=== PATIENT | male | born 1965 | race Caucasian/White ===

== ENCOUNTER → 2018-02-05 19:56 | Outpatient (CLI) | payer BC, SELFPAY ==
--- NOTE | 2018-02-05 19:59 | DI.MRI.S_ITS ---
PROCEDURE: MR LUMBAR SPINE WO CON INDICATIONS: LUMBAR BACK PAIN WITH RADICULOPATHY TECHNIQUE: Noncontrast sagittal T1 spin echo and T2 fast echo, sagittal STIR, axial T1 and T2 fast spin echo through the lumbar spine. In cases with scoliosis, additional coronal T2 fast spin echo may be performed. COMPARISON: None. FINDINGS: Image quality: Excellent. Alignment and Curvature: No plain films are available for comparison, for numbering purposes. Thus, for the purposes of this examination, 5 lumbar type vertebral bodies will be presumed, as denoted on the montage panel. This should be confirmed and correlated with plain films, prior to any lumbar spinal intervention. There is loss of normal lumbar lordosis. Bone Marrow: Marrow is of normal overall signal. No acute vertebral body compression fractures. There is mild reactive signal within the endplates adjacent to the the L1-L2, L2-L3, L3-L4, and L4-L5 intervertebral discs. Spinal Cord: Conus medullaris terminates at the T12-L1 disc space level. Visualized cord demonstrates normal signal and size. Paraspinous Soft Tissues: No paravertebral masses. T12-L1: Mild disc desiccation and diffuse disc bulge with superimposed small broad-based right posterolateral protrusion. Mild facet and ligamentum flavum hypertrophy bilaterally. Mild epidural lipomatosis. Mild canal stenosis. Mild right greater than left foraminal stenosis. L1-L2: Congenital canal stenosis. Mild disc desiccation and diffuse disc bulge. Mild facet and ligamentum flavum hypertrophy bilaterally. Mild epidural lipomatosis. Mild canal stenosis. Mild foraminal stenosis bilaterally. L2-L3: Congenital canal stenosis. Moderate disc height loss and desiccation. Moderate diffuse disc bulge with superimposed left paracentral protrusion. Moderate facet hypertrophy bilaterally. Mild ligamentum flavum hypertrophy bilaterally. Mild epidural lipomatosis. Severe canal stenosis. Mild foraminal stenosis bilaterally. L3-L4: Congenital canal stenosis. Moderate disc desiccation. Mild disc height loss. Mild diffuse disc bulge. Moderate facet hypertrophy bilaterally. Mild ligamentum flavum hypertrophy bilaterally. Mild epidural lipomatosis. Severe canal stenosis. Mild foraminal stenosis bilaterally. L4-L5: Congenital canal stenosis. Moderate disc height loss and desiccation. Mild diffuse disc bulge. Moderate facet and ligamentum flavum hypertrophy bilaterally. Mild epidural lipomatosis. Severe canal stenosis. Mild foraminal stenosis bilaterally. L5-S1: Congenital canal stenosis. Moderate disc height loss and desiccation. Mild diffuse disc bulge. Mild facet hypertrophy bilaterally. Epidural lipomatosis. Moderate canal stenosis. Mild foraminal stenosis bilaterally. IMPRESSION: 1. Diffuse congenital canal stenosis, with superimposed disc and facet disease, as well as ligamentum flavum hypertrophy. 2. Severe canal stenoses at L2-L3, L3-L4, and L4-L5. 3. Mild multilevel foraminal stenoses. 4. 5 lumbar type vertebral bodies were presumed for the current report. Plain films of the lumbar spine are recommended for confirmation, prior to any lumbar spinal intervention. Dictated by: Ariel Jacques M.D. on 02/06/2018 at 8:33 Approved by: Ariel Jacques M.D. on 02/06/2018 at 8:41
== END ==
PROVIDERS: Visit Provider Nurse Practitioner Family
DX: M54.5 Low back pain (principal); M48.061 Spinal stenosis, lumbar region without neurogenic claudication; M48.07 Spinal stenosis, lumbosacral region; M51.16 Intervertebral disc disorders with radiculopathy, lumbar region; M51.17 Intervertebral disc disorders with radiculopathy, lumbosacral region
CPT/HCPCS: 72148

== ENCOUNTER → 2018-02-19 09:13 | Outpatient (CLI) | payer BC, SELFPAY ==
--- NOTE | 2018-02-19 | DI.CT.S_ITS ---
PROCEDURE: CT ABDOMEN PELVIS WO/W CON INDICATIONS: HEMATURIA TECHNIQUE: Optional 5 mm thick noncontrast images acquired from the diaphragm to the symphysis pubis. After the administration of intravenous contrast, 5 mm thick images acquired from the diaphragm to the symphysis pubis after a 10-minute delay. 2 mm thick coronal and sagittal reformats were then performed of the kidneys and ureters. For radiation dose reduction, the following was used: automated exposure control, adjustment of mA and/or kV according to patient size. COMPARISON: None. FINDINGS: Image quality: Excellent. Lung bases: No acute consolidation. There is scattered subsegmental atelectasis and/or scarring Heart size is normal. Urinary system: Both kidneys are normal in size, without hydronephrosis or nephrolithiasis on pre-contrast images. No perinephric fat stranding. There is normal bilateral renal enhancement. Renal calyces appear normal in morphology when filled with contrast. Opacified portions of both ureters demonstrate normal caliber. Bladder wall thickness is normal. No calcified bladder stones. Other solid organs: Liver is normal in size and enhancement. Gallbladder unremarkable. Biliary system is non dilated. Pancreas enhances normally. Spleen is normal in size and enhancement. No adrenal nodules. Peritoneum and bowel: No evidence of bowel obstruction. Colonic diverticulosis is seen without evidence of acute complication. The appendix is within normal limits. There is questionable cecal and ascending colon as well as terminal ileum wall thickening although this segment of bowel is decompressed and evaluation is limited No free fluid or air. Nodes and vessels: No retroperitoneal or mesenteric adenopathy by size criteria. Aorta and inferior vena cava are normal in size. Abdominal wall: Tiny fat containing umbilical hernia. Pelvis: No pathologic free pelvic fluid. Small bilateral fat containing inguinal hernias. No pelvic adenopathy. Bones: No suspicious bony lesions. No vertebral body compression fractures. IMPRESSION: Suggestion of low-grade short segmental wall thickening of the cecum/ascending colon and possibly the terminal ileum. Please correlate clinically for Crohn disease or potentially low-grade enterocolitis. There is minimal if any adjacent inflammatory changes in the fat and this finding is technically age-indeterminate. Please correlate clinically and laboratory data. No urolithiasis. No evidence of urinary obstruction. Incidental colonic diverticulosis. Small bilateral fat-containing inguinal hernias. Dictated by: Keith Thomas M.D. on 02/19/2018 at 11:37 Approved by: Keith Thomas M.D. on 02/19/2018 at 11:44
== END ==
PROVIDERS: PCP Family Medicine; Visit Provider Family Medicine
DX: R31.9 Hematuria, unspecified (principal); K57.90 Diverticulosis of intestine, part unspecified, without perforation or abscess without bleeding; K40.20 Bilateral inguinal hernia, without obstruction or gangrene, not specified as recurrent
CPT/HCPCS: 74178; Q9967

== ENCOUNTER 2019-06-20 11:56 | Day surgery (SDC) | payer BC, SELFPAY ==
--- NOTE | 2019-06-20 08:00 | PM.HP.1 ---
History of Present Illness History of Present Illness Date Patient Seen: 06/20/19 Time Patient Seen: 13:00 Chief complaint: [id number] SCREENING COLONOSCOPY Narrative: 54 year old male comes in today for consideration of a screening colonoscopy. There have been no lower GI symptoms suggesting disease such as change in bowel habits, bleeding, abdominal pain or anemia. There's been no family history of colon cancer or colon polyps. Overall health issues have been stable, including no major cardiac events for at least 6 weeks. Current Medications 1) Losartan Potassium 100 Mg Oral Tablet (Losartan Potassium) .... Take 1 tablet by mouth once a day, for blood pressure control. 2) Zolpidem Tartrate 10 Mg Oral Tablet (Zolpidem Tartrate) .... one tablet at bedtime as needed for insomnia 3) Chantix Starting Month Leo 0.5 Mg X 11 & 1 Mg X 42 Oral Tablet (Varenicline Tartrate) .... 0.5mg tab daily x 3 days; then 0.5mg tab twice a day x 4 days, then one 1mg tab twice a day; for tobacco cessation 4) Chantix Continuing Month Leo 1 Mg Oral Tablet (Varenicline Tartrate) .... Take one tablet twice a day, for tobacco cessation (Press Leo) Allergies No Known Drug Allergies Past Medical History: Hypertension, benign Insomnia Tobacco Dependence Past Surgical History: Left and right knee 2013 Family History: Father: Alcohol and/or substance abuse, Heart disease, Depression Social History: Marital Status: Children: Occupation: Bagel Maker, [employer] Household Members: Education: [employer] 1989 Alcohol drinks/day: <1/day Packs/Day: 0.25 Meds Home Medications and Allergies Home Medications Medication Instructions Recorded Confirmed Type amlodipine 5 mg PO DAILY 06/20/19 06/20/19 History hydrochlorothiazide 12.5 mg PO DAILY 06/20/19 06/20/19 History losartan 100 mg PO DAILY 06/20/19 06/20/19 History Allergies Allergy/AdvReac Type Severity Reaction Status Date / Time No Known Drug Allergies Allergy Verified 06/20/19 12:17 Review of Systems Review of Systems ROS: Yes All systems reviewed with the patient and are negative except as otherwise documented Exam Narrative Exam Narrative: General: Alert and oriented, appearing stated age and in no acute distress. Head: Head normocephalic/atraumatic. Neck: Neck soft and supple, no lymphadenopathy. Lungs: Clear to auscultation bilaterally, no wheezes, rhonchi or rales. Heart: Normal S1 and S2 with regular rate and rhythm, no audible murmurs, rubs or gallops. Abdomen: Soft, non-tender, non-distended, no organomegaly. Possitive bowel sounds. Psych: Alert and oriented x 3. Assessment & Plan Assessment & Plan narrative: 1. Screening for colon cancer Plan for colonoscopy. The nature and character of the procedure as well as anticipated results were discussed. The possibility of not completing the procedure was also discussed. Possible complications including aspiration pneumonia, bleeding, perforation and reaction to medications either for sedation or preparation and missed lesions were discussed. Questions were answered and proceeding to the colonoscopy was elected. Informed consent signed.
--- NOTE | 2019-06-20 08:07 | PM.OP.ENDO ---
Operative Date/Time/Diagnoses Date of procedure: 06/20/19 Time of procedure: 13:03 Pre-op diagnosis: 1. Screening for colon cancer Post-op diagnosis: other (1. Diverticulosis, moderate, left-sided) Procedure & Clinicians Study performed: Colonoscopy Same procedure as scheduled: Yes Indications: 1. Screening for colon cancer Surgeon: Meghann Paredes Procedure Notes SCOAP/Timeout: 13:03 Procedure in detail: ENDOSCOPIST: Meghann Paredes MD Sedation RN: Zion Anaya RN Sedation start time: 13:04 Sedation end time: 13:53 PROCEDURE: Colonoscopy INDICATIONS: 1. Screening for colon cancer MEDICATION: Levsin 0.125 mg sublingual, incremental doses of Versed and fentanyl until appropriate level sedation achieved. ASA CLASS: 2 CECAL WITHDRAWAL TIME: 22 minutes COMPLICATIONS: None. EXTENT OF PROCEDURE: Cecum. QUALITY OF PREP: Good with portions of liquid stool. PROCEDURE: Prior to insertion of the colonoscope, a digital rectal examination was accomplished with circumferential palpation of the distal rectal mucosa without significant findings being noted. The high-definition colonoscope was passed into the rectum in the usual fashion and advanced over to the cecum without difficulty. The ileocecal valve, appendiceal stoma, and medial wall all could be inspected and no abnormalities were seen. ASCENDING COLON: As the colonoscope was withdrawn, care was taken to expose and inspect the haustral folds and no abnormalities were seen. HEPATIC FLEXURE: Normal no polyps, diverticula or other abnormalities. TRANSVERSE COLON: Normal no polyps, diverticula or other abnormalities. DESCENDING COLON: Moderate diverticulosis, otherwise, normal, no polyps or other abnormalities. SIGMOID COLON: Moderate diverticulosis, otherwise, normal, no polyps or other abnormalities. RECTUM: Normal. J maneuver was produced. There was no significant perianal disease. The J maneuver was broken. The remainder of the rectum was inspected and there was no external hemorrhoid disease. The scope was withdrawn. IMPRESSION: 1. Normal colonoscopy 2. Left-sided diverticulosis, moderate PLAN: 1. Repeat colonoscopy in 10 years. The possibility of a missed lesion including a malignancy has been discussed with the patient previously. Potential alarm symptoms have been discussed and should be reported immediately. Scope withdrawal time: 22 Sedation minutes: 49 Findings: diverticulosis Specimen(s): none sent Complications: none Impression: As above. Post-procedure Recommendations: Colonscopy in 10 years Follow up: as needed Disposition: PACU
[2019-06-20 12:10] VITALS: BP 133/85; PULSE 67; RESP 16; TEMP 36.2; O2SAT 98; BMI 31.4
[2019-06-20] MEDS: SODIUM CHLORIDE 0.9% 1,000 ML 200 ML IV (12:39)
[2019-06-20] MEDS: HYOSCYAMINE 0.125 MG TABLET PO (12:55)
[2019-06-20] MEDS: MIDAZOLAM 5 MG/5 ML VIAL IV (13:58)
[2019-06-20] MEDS: fentaNYL 250 MCG/5 ML INJ IV (13:59)
[2019-06-20 14:00] VITALS: BP 122/79; PULSE 60; RESP 12; TEMP 36.8; O2SAT 96
[2019-06-20 14:09] VITALS: BP 110/71; PULSE 56; RESP 20; O2SAT 95
--- NOTE | 2019-06-20 14:18 | SUR.PHASEII ---
Patient arrived from Endo awake and alert.
== END 2019-06-20 14:24 | disposition home or self-care (01) ==
PROVIDERS: PCP Student in an Organized Health Care Education/Training Program; Referring Provider Student in an Organized Health Care Education/Training Program; Visit Provider Student in an Organized Health Care Education/Training Program
PROC: 0DJD8ZZ Inspection of Lower Intestinal Tract, Via Natural or Artificial Opening Endoscopic (ICD-10-PCS; CPT 45378; principal; 2019-06-20 13:00)
DX: Z12.11 Encounter for screening for malignant neoplasm of colon (principal); K57.30 Diverticulosis of large intestine without perforation or abscess without bleeding
CPT/HCPCS: 45378; J2250; J3010

== ENCOUNTER → 2021-05-05 12:08 | Outpatient (CLI) | payer BC, SELFPAY | PROVIDERS: Family Provider Student in an Organized Health Care Education/Training Program; PCP Student in an Organized Health Care Education/Training Program; Referring Provider Student in an Organized Health Care Education/Training Program; Visit Provider Student in an Organized Health Care Education/Training Program | DX: G62.9 Polyneuropathy, unspecified (principal) | CPT/HCPCS: 95886; 95911 ==

== ENCOUNTER 2021-12-29 12:07 | Outpatient (CLI) | payer OTHER, SELFPAY | END 2022-01-02 12:46 | disposition home or self-care (01) | PROVIDERS: Family Provider Family Medicine; PCP Family Medicine; Referring Provider Family Medicine; Visit Provider Family Medicine | DX: G54.0 Brachial plexus disorders (principal) | CPT/HCPCS: 95886; 95909 ==

== ENCOUNTER → 2022-03-15 13:41 | Outpatient (CLI) | payer OTHER, SELFPAY ==
--- NOTE | 2022-03-15 | DI.MRI.S_ITS ---
PROCEDURE: MR CERVICAL SPINE WO CON INDICATIONS: CERVICAL RADICULOPATHY TECHNIQUE: Noncontrast sagittal T1 spin echo and T2 fast spin echo, sagittal STIR, foraminal oblique sagittal T2 fast spin echo, and axial gradient echo or T2 fast spin echo through the cervical spine. COMPARISON: None. FINDINGS: Image quality: Excellent Alignment: Straightening normal cervical lordosis. No malalignment. Marrow: No acute fracture. Multilevel disc desiccation and height loss. Cord: No myelopathy signal or focal lesion. Soft tissues: Prominent cervical lymph nodes are indeterminate, not enlarged by size criteria. No paravertebral soft tissue mass or fluid collection. Specific levels: C2-C3: No stenosis. C3-C4: Uncovertebral and facet arthropathy. Small posterior disc osteophyte complex. Mild central narrowing. Moderate to severe right neural foraminal narrowing and moderate left neural foraminal narrowing. C4 on C5: Uncovertebral and facet arthropathy. Mild central narrowing. Small posterior disc osteophyte complex. Moderate to severe right neural foraminal narrowing. Mild left neural foraminal narrowing. C5-C6: Uncovertebral facet arthropathy. Posterior disc osteophyte complex, asymmetric toward the left paracentral region and foraminal region. Mild central narrowing, with osteophyte contacting the left [place] cord. Moderate right neural foraminal narrowing. Moderate to severe left neural foraminal narrowing. C6-C7: Uncovertebral and facet arthropathy. Posterior disc osteophyte complex. Mild to moderate central narrowing. Moderate to severe right neural foraminal narrowing. Severe left neural foraminal narrowing. C7 on T1: Uncovertebral facet arthropathy. Mild bilateral neural foraminal narrowing. IMPRESSION: Moderate to severe spondylosis as described above, mostly with neural foraminal narrowing caused by uncovertebral and facet arthropathy. There are also disc osteophyte complexes posteriorly with contact of the left [place] cord at C5-C6. Dictated by: Jeremi Almaraz M.D. on 03/15/2022 at 16:17 Approved by: Jeremi Almaraz M.D. on 03/15/2022 at 16:23
== END ==
PROVIDERS: Family Provider Family Medicine; PCP Family Medicine; Referring Provider Psychiatry & Neurology Neurology; Visit Provider Psychiatry & Neurology Neurology
DX: M47.22 Other spondylosis with radiculopathy, cervical region (principal)
CPT/HCPCS: 72141

== ENCOUNTER → 2022-07-25 08:19 | Outpatient (CLI) | payer BC, SELFPAY ==
--- NOTE | 2022-07-25 | DI.US.S_ITS ---
PROCEDURE: US RENAL COMPLETE INDICATIONS: HEMATURIA TECHNIQUE: Real-time scanning was performed of the kidneys and bladder, with image documentation. COMPARISON: None. FINDINGS: Kidneys: Kidneys are normal in size. Right kidney measures 13.9 cm long; left kidney measures 13.6 cm long. Right renal cortical thickness is 2.0 cm; left renal cortical thickness is 2.0 cm. Renal cortical echotexture is normal. No hydronephrosis or nephrolithiasis. No suspicious solid mass lesions. Bladder: Pre-void bladder volume is 204 mL. Post-void residual is 64 mL. Pre-void images demonstrate no intraluminal masses or stones. On pre-void images, both ureteral jets are noted with color Doppler interrogation. (Of note, ureteral jets may not be detectable in up to 25% of cases due to insufficient differences in specific gravity between ureteral and bladder urine). Miscellaneous: No free pelvic fluid. IMPRESSION: 1. No hydronephrosis or evidence of nephrolithiasis. 2. Postvoid residual urinary bladder volume of 64 mL. Dictated by: Bam Narayan M.D. on 07/25/2022 at 21:40 Approved by: Bam Narayan M.D. on 07/25/2022 at 21:43
== END ==
PROVIDERS: Family Provider Family Medicine; PCP Family Medicine; Referring Provider Family Medicine; Visit Provider Family Medicine
DX: R31.9 Hematuria, unspecified (principal)
CPT/HCPCS: 76770

== ENCOUNTER → 2022-08-09 10:46 | Outpatient (CLI) | payer BC, SELFPAY ==
--- NOTE | 2022-08-10 15:08 | DIET.OUTPTC ---
Dietary Outpatient Consultation Note Consultation Date: 08/10/2022 57 y/o M presenting with pre-diabetes (A1c 6.3%). Pt reports eating poorly with lots of life stressors. Has been eating lots of sugars to satisfy sweet tooth before bed. Also likes sugar in the morning to get going.? Notes having ADHD. Ever since meds (2 yrs), self soothing habits like smoking and drinking have decreased. No change in appetite.? Pt is interested in getting a glucometer to monitor BG levels.? Diet Recall: B: 1-2 cups coffee with 1 spoon sugar and cream, 8 shortbread girl fountain roller assembler cookies OR two eggs with leftover meat (ham, pork, steak) L: skip OR something light (lots of projects going), 2-3 pints of water. D: salad? with blue cheese or ranch OR protein and 2 cups CHO (pasta, rice) S: sugar snacks OR sunflower seeds OR nuts ETOH: ?hit or miss.? Recently more, 2-3 drinks a day. Cocktails or wine. Drink more in Fall and Winter.? Physical Activity: free weights, chores, outdoor yard work.? Ht: 6?10?? Wt: 300 lbs / 136.4 kg Wt hx: 290-300 lbs / 131.8-136.4 kg Labs:? A1c: 6.3% (pre-diabetes)? T LDL: 93 Total Cholesterol: 167 Diagnosis: altered nutrition related laboratory values r/t newly diagnosed pre-diabetes aeb A1c (6.3%), diet recall suggesting a diet inconsistent with DM recommendations (high CHO), no prior DM education.? Interventions:? 1. Educated pt on what A1c and glucose/insulin means, ranges, and what is happening in the body.? 2. Recommended getting a glucometer, gave instruction on using and values to aim for. 3. Educated pt on CHO counting using handout. Recommended 30-45 g CHO per snack, 60-75 g CHO per meal, and pairing CHO with protein. 4. Educated pt on label reading.? 5. Recommend no more than 25 g sugar/day. 6. Recommended increasing veg at dinner and decreasing CHO.? f/u prn Electronically Signed by: Carol Tello 08/09/22 15:08 Clinical Dietitian [address] [address]
== END ==
PROVIDERS: Family Provider Family Medicine; PCP Family Medicine; Referring Provider Family Medicine; Visit Provider Family Medicine
DX: R73.03 Prediabetes (principal); Z71.3 Dietary counseling and surveillance
CPT/HCPCS: 97802

== ENCOUNTER 2023-04-08 12:35 | Observation (INO) | payer OTHER, MEDICAID, SELFPAY ==
[2023-04-08] VITALS (30 sets, daily range): BP systolic 110–144; BP diastolic 56–83; PULSE 80–107; RESP 16–28; TEMP 36.3–38.2; O2SAT 92–98; BMI 30.8
--- NOTE | 2023-04-08 12:44 | DI.RAD.S_ITS ---
PROCEDURE: XR CHEST 1V INDICATIONS: suspected sepsis TECHNIQUE: One view of the chest was acquired. COMPARISON: [facility], , PERIPH VENOUS LOW EXTREM RT, 04/08/2023, 14:05. FINDINGS: Surgical changes and devices: None. Lungs and pleura: On this semiupright portable chest examination, no large pneumothorax or large pleural effusions are seen. No focal infiltrates are seen. Low lung volumes are noted. This causes a crowded appearance to the lung markings and limits evaluation. Mediastinum: Mediastinal contours appear normal. Heart size is normal. Bones and chest wall: No suspicious bony lesions. Overlying soft tissues appear unremarkable. IMPRESSION: Low lung volumes, without an acute abnormality seen by plain film. Dictated by: Juan Ann M.D. on 04/08/2023 at 15:18 Approved by: Juan Ann M.D. on 04/08/2023 at 15:19
--- NOTE | 2023-04-08 12:51 | DI.US.S_ITS ---
PROCEDURE: US PERIPH VENOUS LOW EXTREM RT INDICATIONS: RED, HOT, SWOLLEN CALF. GROIN PAIN. TECHNIQUE: Real-time imaging, as well as color and pulse Doppler interrogation, were performed of the lower extremity deep veins from the inguinal ligament to the popliteal fossa, with documentation of the visualized calf veins. COMPARISON: None. FINDINGS: The common femoral, femoral, popliteal, and the visualized calf veins are normally compressible, and free of intraluminal thrombus. Some calf veins however were not well seen due to the edema. Color and pulse Doppler demonstrate normal phasic intraluminal flow. There is normal augmentation response to distal compression maneuver. Calf edema and multiple right groin lymph nodes are prominent measuring up to 1.5 cm in AP dimension. IMPRESSION: No findings of lower extremity deep venous thrombosis. Edema is present. Borderline enlarged right groin lymph nodes, overall with fatty joseph, possibly reactive. Dictated by: Jeremi Almaraz M.D. on 04/08/2023 at 14:55 Approved by: Jeremi Almaraz M.D. on 04/08/2023 at 14:56
--- NOTE | 2023-04-08 12:56 | ED_ITS ---
HPI - General Adult General Chief complaint: Fever Stated complaint: R/groin pain, fever, calf pain Time Seen by Provider: 04/08/23 12:54 Source: patient Mode of arrival: Family Vehicle History of Present Illness HPI narrative: 58-year-old gentleman with a history of hypertension, ADHD and depression presents with 48 hours of right lower extremity pain, redness and swelling progressively worsening into the calf/groin and last night noted fever, chills and increasing redness and pain in the right lower extremity. He does not describe cough, palpitation, abdominal pain, nausea, vomiting, diarrhea, flank pain or headache Related Data Home Medications Medication Instructions Recorded Confirmed amlodipine 10 mg tablet 5 mg PO DAILY 06/20/19 06/07/22 gabapentin 300 mg capsule 300 mg PO TID 06/07/22 06/07/22 losartan 100 mg tablet 100 mg PO DAILY 06/07/22 06/07/22 Previous Rx's Medication Instructions Recorded bupropion HCl 300 mg 24 hr tablet, 300 mg PO DAILY #90 tabs 10/30/22 extended release dextroamphetamine-amphetamine 10 10 mg PO DAILY #30 tabs 03/23/23 mg tablet dextroamphetamine-amphetamine ER 15 mg PO DAILY #30 caps 03/23/23 15 mg 24hr capsule,extend release Allergies Allergy/AdvReac Type Severity Reaction Status Date / Time iodine Allergy Rash Verified 04/08/23 12:44 Review of Systems Review of Systems Narrative: Pertinent positive and negative findings as per HPI Patient History Medical History (Updated 04/08/23 @ 15:39 by Ernestine Whipple MD) Hypertension ADHD (attention deficit hyperactivity disorder), inattentive type History of posttraumatic stress disorder (PTSD) Depression Social History marital status: number of children: 3 household members: spouse, family and children lives independently: Yes housing: house education level: college [employer]/evangelical: [employer] special merrick needs: No travel history: over 6 months ago Smoking Status: Current every day smoker alcohol intake: current Smoking Status: Current every day smoker alcohol intake frequency: 0-2 drinks per day Substance Use Type: does not use Exam Initial Vital Signs Initial Vital Signs: Vital Signs Temperature 100.7 F H 04/08/23 12:39 Pulse Rate 107 H 04/08/23 12:39 Respiratory Rate 24 04/08/23 12:39 Blood Pressure 144/81 H 04/08/23 12:39 Pulse Oximetry 96 04/08/23 12:39 Oxygen Delivery Method Room Air 04/08/23 12:39 General: Healthy appearing, in no acute distress but he does appear to be breaking a fever, diaphoretic. Able to give a complete and coherent history. Well-nourished well-developed HEENT: Moist mucous membranes, normal sclera with reactive pupils, Neck: No cervical adenopathy, supple Respiratory: Lungs are clear to auscultation, no wheezing no rales no rhonchi. Full and symmetrical air movement Cardiac: Mild tachycardia but otherwise Regular rate and rhythm no murmurs no bruits Abdomen: Soft, nontender, good bowel tones, no flank pain Skin: Redness from the ankle to mid calf right lower extremity. No obvious fluctuance or abrasion/flex laceration/puncture site to suggest source of infection Neurologic: Grossly neurologically intact with no obvious asymmetries or abnormalities Extremities: Right lower extremity is more swollen than the left. He has some tenderness that does not feel like lymphadenopathy and it may be a cord in the inguinal vessels Psych: Cooperative, appropriate insight and affect Course Orders Ordered: ED Orders 04/08/23 12:44 XR chest 1V Stat EKG-12 Lead Stat RT Consult Eval and Treat NOW 04/08/23 12:51 US periph venous low extrem rt Stat 04/08/23 12:55 Blood Culture Stat 04/08/23 12:57 Complete Blood Count AUTO DIFF Stat Comprehensive Metabolic Panel Stat Lactate (Lactic Acid) Stat Lipase Stat PTT Partial Thromboplastin [place] Stat Procalcitonin Stat Prothrombin Time INR Stat 04/08/23 14:52 Urine Culture Stat Urine Microscopic Stat Vancomycin HCl/Dextrose (Vancomycin) 2,000 mg in 400 mls @ 200 mls/hr IV NOW ONE Stop: 04/08/23 15:59 Last Admin: 04/08/23 15:00 Dose: 200 mls/hr Documented By: RB Ondansetron HCl (Ondansetron 4 Mg/2 Ml Inj) 4 mg IV NOW PRN PRN Reason: Nausea And Vomiting Ondansetron HCl (Ondansetron 4 Mg Odt) 4 mg SL NOW PRN PRN Reason: Nausea And Vomiting Discontinued Medications Sodium Chloride (Normal Saline 0.9%) 1,000 mls @ 1,000 mls/hr IV BOLUS ONE Stop: 04/08/23 13:43 Last Infusion: 04/08/23 14:06 Dose: Infused Documented By: Admin: 04/08/23 13:01 Dose: 1,000 mls/hr Documented By: RB Ceftriaxone Sodium 2,000 mg/ (Sodium Chloride) 100 mls @ 200 mls/hr IV NOW ONE Stop: 04/08/23 12:56 Last Infusion: 04/08/23 15:24 Dose: Infused Documented By: Admin: 04/08/23 14:30 Dose: 200 mls/hr Documented By: RB Sodium Chloride (Normal Saline 0.9%) 1,000 mls @ 1,000 mls/hr IV BOLUS ONE Stop: 04/08/23 15:20 Last Infusion: 04/08/23 15:00 Dose: Infused Documented By: Admin: 04/08/23 14:32 Dose: 1,000 mls/hr Documented By: RB Sodium Chloride (Normal Saline 0.9%) 1,000 mls @ 1,000 mls/hr IV BOLUS ONE Stop: 04/08/23 15:38 Last Infusion: 04/08/23 15:49 Dose: Infused Documented By: Admin: 04/08/23 15:01 Dose: 1,000 mls/hr Documented By: MARY Oxycodone/Acetaminophen (Oxycodone/Acetaminophen 5/325 Tablet) 2 tab PO NOW ONE Stop: 04/08/23 13:48 Last Admin: 04/08/23 13:57 Dose: 2 tab Documented By: MARY Vancomycin HCl (Vancomycin Per Pharmacy) 1 request MISC NOW ONE Stop: 04/08/23 12:57 Last Admin: 04/08/23 13:16 Dose: Not Given Documented By: MARY Vital Signs Vital signs: Vital Signs - 8 hr 04/08/23 12:39 04/08/23 13:36 04/08/23 13:46 Temperature 100.7 F H 98 F Pulse Rate 107 H 85 Respiratory Rate 24 18 Blood Pressure 144/81 H 122/79 Pulse Oximetry 96 98 Oxygen Delivery Method Room Air Room Air 04/08/23 14:00 04/08/23 14:30 04/08/23 14:37 Temperature 98.2 F Pulse Rate 81 80 Respiratory Rate 22 23 Blood Pressure 126/80 Pulse Oximetry 97 98 Oxygen Delivery Method Room Air 04/08/23 14:37 04/08/23 14:40 04/08/23 14:40 Temperature Pulse Rate 86 Respiratory Rate 26 H Blood Pressure 121/69 128/74 Pulse Oximetry 98 Oxygen Delivery Method 04/08/23 14:45 04/08/23 14:45 04/08/23 14:50 Temperature Pulse Rate 82 87 Respiratory Rate 21 21 Blood Pressure 130/67 Pulse Oximetry 98 97 Oxygen Delivery Method 04/08/23 14:50 04/08/23 14:55 04/08/23 14:55 Temperature Pulse Rate 82 Respiratory Rate 24 Blood Pressure 141/75 H 137/72 Pulse Oximetry 97 Oxygen Delivery Method 04/08/23 15:00 04/08/23 15:00 04/08/23 15:05 Temperature Pulse Rate 86 86 Respiratory Rate 21 18 Blood Pressure 134/77 Pulse Oximetry 97 97 Oxygen Delivery Method 04/08/23 15:05 04/08/23 15:10 04/08/23 15:10 Temperature Pulse Rate 84 Respiratory Rate 24 Blood Pressure 140/70 123/71 Pulse Oximetry 97 Oxygen Delivery Method 04/08/23 15:15 04/08/23 15:15 04/08/23 15:20 Temperature Pulse Rate 85 Respiratory Rate 26 H Blood Pressure 121/62 120/68 Pulse Oximetry 96 Oxygen Delivery Method 04/08/23 15:20 Temperature Pulse Rate 93 H Respiratory Rate 28 H Blood Pressure Pulse Oximetry 95 Oxygen Delivery Method Medical Decision Making Lab Data 04/08/23 12:57 04/08/23 12:57 Labs: Lab Results 04/08/23 04/08/23 Range/Units 12:57 14:52 WBC 33.5 H* (4.5-11.0) X10^3/uL RBC 4.34 L (4.5-5.9) X10^6/uL Hgb 13.4 L (13.5-17.5) g/dL Hct 39.9 L (41-53) % MCV 91.8 (80-100) fL MCH 30.9 (26-34) PG MCHC 33.7 (30-36) % RDW 13.2 (11.6-14.8) % Plt Count 223 (150-400) X10^3/uL Neut % (Auto) Not Reportable Lymph % (Auto) Not Reportable [place] % (Auto) Not Reportable Eos % (Auto) Not Reportable Baso % (Auto) Not Reportable Lymph # (Auto) Not Reportable [place] # (Auto) Not Reportable Baso # (Auto) Not Reportable Total Counted 100 Seg Neutrophils % 81.0 H (38-70) % Band Neutrophils % 10.0 H (3-7) % Lymphocytes % (Manual) 6.0 L (25-45) % Monocytes % (Manual) 3.0 (2-11) % Neutrophils # (Manual) 70561 H (9451-6437) /uL RBC Morphology Normal morphology PT 17.4 H (9.4-12.5) SECONDS INR 1.5 H (0.9-1.3) APTT 32 (25.1-36.5) SECONDS Sodium 133 L (137-145) mmol/L Potassium 4.1 (3.4-5.1) mmol/L Chloride 104 (98-107) mmol/L Carbon Dioxide 21 L (22-32) mmol/L BUN 15 (9-20) mg/dL Creatinine 0.99 (0.66-1.25) mg/dL Estimated GFR > 60 (>60) mL/min BUN/Creatinine Ratio 15.2 (6-22) Glucose 130 H (70-100) mg/dL Lactate 1.1 (0.7-2.1) mmol/L Calcium 10.0 (8.4-10.2) mg/dL Total Bilirubin 1.3 (0.2-1.3) mg/dL AST 19 (17-59) IU/L ALT 19 (<50) IU/L Alkaline Phosphatase 67 (38-126) U/L Total Protein 7.8 (6.3-8.2) g/dL Albumin 4.1 (3.5-5.0) g/dL Globulin 3.7 (1.7-4.1) g/dL Albumin/Globulin Ratio 1.1 (1.0-2.8) Lipase 26 (23-300) U/L Procalcitonin 2.30 H (<0.5) ng/mL Urine RBC 5-10/hpf H (0-5/HPF) Urine WBC 0-1/hpf (0-5/HPF) Ur Squamous Epith Cells 0-1 /hpf (0-5/HPF) Amorphous Sediment 1+ Urine Bacteria Occasional (0-1) (None) Ur Culture Indicated? Specimen cultured Urine Dip Bedside Urine Glucose Negative Bedside Urine Bilirubin - Negative Bedside Urine Ketone - Negative Urine Specific [place] 1.005 Bedside Urine Occult Blood +++ Bedside Urine pH 6.0 Bedside Urine Protein - Negative Bedside Urine Urobilinogen - Negative Bedside Urine Nitrite - Negative Bedside Urine Leukocytes +/- 15 Esterase Point of care testing: Urine Dip Bedside Urine Glucose Negative Bedside Urine Bilirubin - Negative Bedside Urine Ketone - Negative Urine Specific [place] 1.005 Bedside Urine Occult Blood +++ Bedside Urine pH 6.0 Bedside Urine Protein - Negative Bedside Urine Urobilinogen - Negative Bedside Urine Nitrite - Negative Bedside Urine Leukocytes +/- 15 Esterase MDM Narrative Medical decision making narrative: CC: Fever, right leg pain Data collected from: patient Social determinants of health that may influence the patients condition: Patient drove to and from [place] 3 days ago. The pain in the right extremity was present prior to that. Medical records reviewed: Psychiatric medical records and colon screening notes are noted Differential considered: Sepsis, right lower extremity cellulitis, DVT, PE Exam documented above, pertinent findings include: Right leg is significantly swollen, right lower extremity edema consistent with a cellulitis, no inguinal adenopathy but tenderness along the inguinal vessels, slightly diaphoretic likely fever breaking. Cognitively appropriate and no signs of pulmonary or cardiac abnormalities at this time Lab Test results independently reviewed as above. Pertinent findings: White blood cell count is 33.5, 81% neutrophils Chemistries show appropriate renal function no significant electrolyte or liver function abnormalities Urine has occasional red cells does not look like a bladder infection Imaging studies independently reviewed: No DVT however significant lower extremity edema with notable right lymph node hypertrophy Consultations:Dr Rod is his PCP., Dr Julien is talent acquisition specialist tbis weekend Treatments: Fluids which did help significantly with his tachycardia. Vancomycin and ceftriaxone for presumed right lower extremity cellulitis Re-evaluations: Patient is re-evaluated, as long as his leg is elevated he is having minimal pain Discussion: 58-year-old gentleman with increasing right calf pain right lower extremity cellulitis no evidence of DVT and evidence of significant infection with white count dramatically elevated to the point that hematopoietic oncology diagnosis is now within the differential, elevated procalcitonin but lactic acid is unremarkable. At this time I think at least 24 hours of antibiotics given the fevers at home, they impressive white blood cell count, elevated procalcitonin and pain with any dependence of the leg. Dr. Julien accepts admission Discharge Plan Departure Patient Disposition: Admitted as Observation Clinical Impression: Cellulitis Qualifiers: Site of cellulitis: extremity Site of cellulitis of extremity: lower extremity Laterality: right Qualified Code(s): L03.115 - Cellulitis of right lower limb Leukocytosis Qualifiers: Leukocytosis type: other Qualified Code(s): D72.828 - Other elevated white blood cell count
[2023-04-08] MEDS: SODIUM CHLORIDE 0.9% 1,000 ML 1000 ML IV ×3 (13:01→15:01)
[2023-04-08 13:08] LABS: Hematocrit 39.9 % (41-53); Hemoglobin 13.4 g/dL (13.5-17.5); Mean Corpuscular HGB Conc 33.7 % (30-36); Mean Corpuscular Hemoglobin 30.9 PG (26-34); Mean Corpuscular Volume 91.8 fL (80-100); Platelet Count 223 X10^3/uL (150-400); Red Blood Cell Count 4.34 X10^6/uL (4.5-5.9); Red Cell Distribution Width 13.2 % (11.6-14.8)
[2023-04-08 13:10] LABS: Add Manual Diff / Slide Review YES
[2023-04-08 13:11] LABS: INR 1.5 (0.9-1.3); Prothrombin Time 17.4 SECONDS (9.4-12.5)
[2023-04-08 13:12] LABS: White Blood Cell Count 33.5 X10^3/uL (4.5-11.0)
[2023-04-08 13:13] LABS: PTT Partial Thromboplastin Tim 32 SECONDS (25.1-36.5)
[2023-04-08 13:15] LABS: Alanine Aminotransferase 19 IU/L (<50); Albumin 4.1 g/dL (3.5-5.0); Albumin Globulin Ratio 1.1 (1.0-2.8); Alkaline Phosphatase 67 U/L (38-126); Aspartate Aminotransferase 19 IU/L (17-59); BUN Creatinine Ratio 15.2 (6-22); Bilirubin Total 1.3 mg/dL (0.2-1.3); Blood Urea Nitrogen 15 mg/dL (9-20); Carbon Dioxide 21 mmol/L (22-32); Chloride 104 mmol/L (98-107); Estimated Glomerular Filt Rate > 60 mL/min (>60); Globulin 3.7 g/dL (1.7-4.1); Glucose 130 mg/dL (70-100); HEMOLYSIS < 15 (0-50); Lactate (Lactic Acid) 1.1 mmol/L (0.7-2.1); Lipase 26 U/L (23-300); Potassium 4.1 mmol/L (3.4-5.1); Sodium 133 mmol/L (137-145); Total Protein 7.8 g/dL (6.3-8.2)
[2023-04-08 13:22] LABS: Neutrophils Absolute Manual 30485 /uL (3000-5900); RBC Morphology Normal Morphology; Total Cells Counted 100
--- NOTE | 2023-04-08 13:36 | PC.NURSE ---
This RN assisted patient via wheelchair to the bathroom in an attempt to get a urine sample. Patient unable to give urine sample. Provider would like urine sample prior to any antibiotic administration.
[2023-04-08] MEDS: OXYCODONE/ACETAMINOPHEN 5/325 TABLET 2 TAB PO (13:57)
--- NOTE | 2023-04-08 14:01 | PC.NURSE ---
Patient left department with optical manufacturing technician in wheelchair.
[2023-04-08] MEDS: cefTRIAXone 2,000 MG in SODIUM CHLORIDE 0.9% 100 ML 200 MG IV (14:30)
--- NOTE | 2023-04-08 14:32 | PC.NURSE ---
Attempted to get patient urine again by taking the patient to the bathroom unsuccessfully. Bladder scan performed and patient only has 200ml noted upon scan. Provider notified.
[2023-04-08] MEDS: VANCOMYCIN 2,000 MG/400 ML PIGGYBACK 200 MG IV (15:00)
[2023-04-08 15:01] LABS: Amorphous Sediment Urine 1+; Bacteria Urine Occasional (0-1); Culture Indicated Urine Specimen Cultured; RBC Urine 5-10/HPF (0-5/HPF); Squamous Epithelial Cell Urine 0-1 /HPF (0-5/HPF); WBC Urine 0-1/HPF (0-5/HPF)
--- NOTE | 2023-04-08 17:31 | PC.NURSE ---
Day shift: Pt admitted from ED at 1650. A&Ox4. VS WNL, RA. Pt reports 2/10 pain on RLE while resting, pain increases to 8/10 with movement. RLE large area of redness. See picture below. No open areas. OOB with SBA due to dizziness today. Voiding in urinal. Denies SOB, nausea, vomiting or chest pain. Pt has call light within reach. Bed alarm on. Will continue to monitor.
--- NOTE | 2023-04-08 17:35 | PM.HP.1 ---
History of Present Illness History of Present Illness Date Patient Seen: 04/08/23 Time Patient Seen: 17:38 Chief complaint: R/groin pain, fever, calf pain Narrative: 58-year-old male, normally under the care of Dr. Gómez Rod of [facility], presenting with fever as well as right leg pain Patient was in his normal state of health went down to spend Sunday and part of Sunday of iday with family in [place]. Noticed some tingling sensation in the right leg sometime Sunday. Drove back to [place] on Sunday. Developed increasing pain and discomfort in his right lower extremity especially with weight-bearing. Noticed some tingling discomfort in the right groin as well. Sunday evening had fever to 103. Having increasing pain now with redness in the pretibial area on the right lower leg. Finally decided to come to the emergency department on Sunday, today, for evaluation. In the ER he was found to have obvious evidence of cellulitis on exam, [place] [id number] with significant left shift, and temperature of 100.7?. No evidence of trauma to the leg. Patient reports no falls injuries trauma. No reason he can think of to have had an infection start here. Never had anything like this before. Has no known immune deficiencies or issues. No recent infections or unusual infections Ultrasound of the right lower extremity fails to demonstrate evidence of DVT but does demonstrate the obvious edema consistent with a cellulitis and probably some lymphadenopathy in the right groin with maximum lymph node measuring up to 1.5 cm in AP dimension Chest x-ray normal Patient not hypoxic and minimally tachycardic upon presentation but otherwise normal vital signs [facility] Medical History (Updated 04/08/23 @ 17:43 by Darrius Julien MD) Peripheral neuropathy B12 deficiency Hypertension ADHD (attention deficit hyperactivity disorder), inattentive type History of posttraumatic stress disorder (PTSD) Depression Social History marital status: number of children: 3 household members: spouse, family and children lives independently: Yes housing: house education level: college [employer]/baptist: [employer] special merrick needs: No travel history: over 6 months ago Smoking Status: Current every day smoker alcohol intake: current Meds Home Medications and Allergies Home Medications Medication Instructions Recorded Confirmed Type amlodipine 10 mg tablet 5 mg PO DAILY 06/20/19 06/07/22 History gabapentin 300 mg capsule 300 mg PO TID 06/07/22 06/07/22 History bupropion HCl 300 mg 24 hr tablet, 300 mg PO DAILY #90 tabs 10/30/22 10/30/22 Rx extended release dextroamphetamine-amphetamine 10 10 mg PO DAILY #30 tabs 03/23/23 Rx mg tablet dextroamphetamine-amphetamine ER 15 mg PO DAILY #30 caps 03/23/23 Rx 15 mg 24hr capsule,extend release Allergies Allergy/AdvReac Type Severity Reaction Status Date / Time iodine Allergy Rash Verified 04/08/23 12:44 Review of Systems Review of Systems ROS: Yes All systems reviewed with the patient and are negative except as otherwise documented Exam Vital Signs (past 8 hours): - 04/08/23 12:39 04/08/23 13:36 04/08/23 13:46 Temperature 100.7 F H 98 F Pulse Rate 107 H 85 Respiratory Rate 24 18 Blood Pressure 144/81 H 122/79 Pulse Oximetry 96 98 Oxygen Delivery Method Room Air Room Air 04/08/23 14:00 04/08/23 14:30 04/08/23 14:37 Temperature 98.2 F Pulse Rate 81 80 Respiratory Rate 22 23 Blood Pressure 126/80 Pulse Oximetry 97 98 Oxygen Delivery Method Room Air 04/08/23 14:37 04/08/23 14:40 04/08/23 14:40 Temperature Pulse Rate 86 Respiratory Rate 26 H Blood Pressure 121/69 128/74 Pulse Oximetry 98 Oxygen Delivery Method 04/08/23 14:45 04/08/23 14:45 04/08/23 14:50 Temperature Pulse Rate 82 87 Respiratory Rate 21 21 Blood Pressure 130/67 Pulse Oximetry 98 97 Oxygen Delivery Method 04/08/23 14:50 04/08/23 14:55 04/08/23 14:55 Temperature Pulse Rate 82 Respiratory Rate 24 Blood Pressure 141/75 H 137/72 Pulse Oximetry 97 Oxygen Delivery Method 04/08/23 15:00 04/08/23 15:00 04/08/23 15:05 Temperature Pulse Rate 86 86 Respiratory Rate 21 18 Blood Pressure 134/77 Pulse Oximetry 97 97 Oxygen Delivery Method 04/08/23 15:05 04/08/23 15:10 04/08/23 15:10 Temperature Pulse Rate 84 Respiratory Rate 24 Blood Pressure 140/70 123/71 Pulse Oximetry 97 Oxygen Delivery Method 04/08/23 15:15 04/08/23 15:15 04/08/23 15:20 Temperature Pulse Rate 85 Respiratory Rate 26 H Blood Pressure 121/62 120/68 Pulse Oximetry 96 Oxygen Delivery Method 04/08/23 15:20 04/08/23 15:25 04/08/23 15:25 Temperature Pulse Rate 93 H 83 Respiratory Rate 28 H 27 H Blood Pressure 125/83 Pulse Oximetry 95 96 Oxygen Delivery Method 04/08/23 15:30 04/08/23 15:30 04/08/23 15:35 Temperature Pulse Rate 85 90 Respiratory Rate 28 H 23 Blood Pressure 130/75 Pulse Oximetry 97 98 Oxygen Delivery Method Room Air 04/08/23 15:35 04/08/23 15:40 04/08/23 15:40 Temperature Pulse Rate 87 Respiratory Rate 24 Blood Pressure 138/74 132/64 Pulse Oximetry 96 Oxygen Delivery Method 04/08/23 15:45 04/08/23 15:45 04/08/23 15:50 Temperature Pulse Rate 85 Respiratory Rate 26 H Blood Pressure 128/74 137/65 Pulse Oximetry 96 Oxygen Delivery Method 04/08/23 15:50 04/08/23 15:55 04/08/23 15:55 Temperature Pulse Rate 86 88 Respiratory Rate 24 22 Blood Pressure 114/59 L Pulse Oximetry 96 96 Oxygen Delivery Method 04/08/23 16:00 04/08/23 16:00 04/08/23 16:05 Temperature Pulse Rate 86 87 Respiratory Rate 23 22 Blood Pressure 120/57 L Pulse Oximetry 94 92 Oxygen Delivery Method 04/08/23 16:05 04/08/23 16:10 04/08/23 16:10 Temperature Pulse Rate 88 Respiratory Rate 22 Blood Pressure 126/60 129/63 Pulse Oximetry 93 Oxygen Delivery Method 04/08/23 16:15 04/08/23 16:15 04/08/23 16:20 Temperature Pulse Rate 87 87 Respiratory Rate 24 23 Blood Pressure 121/56 L Pulse Oximetry 94 92 Oxygen Delivery Method 04/08/23 16:20 04/08/23 16:25 04/08/23 16:25 Temperature Pulse Rate 86 Respiratory Rate 23 Blood Pressure 125/72 131/71 Pulse Oximetry 93 Oxygen Delivery Method 04/08/23 16:55 Temperature 97.5 F L Pulse Rate 83 Respiratory Rate 16 Blood Pressure 120/69 Pulse Oximetry 97 Oxygen Delivery Method Oxygen Delivery Method Room Air Narrative Exam Narrative: Non acutely ill-appearing middle-aged male in no obvious distress lying in hospital bed HEENT-normocephalic atraumatic Neck-no lymphadenopathy no bruits Lungs-excellent breath sounds no wheezes no crackles Heart-regular rate and rhythm no murmur Abdomen-soft nontender nondistended no hepatosplenomegaly noted Extremities-erythema in the right pretibial area about midshaft tibia, with mild tenderness. No fluctuance or evidence of fluid collection. No skin breakdown. Questionable palpable lymphadenopathy right inguinal area, left lower extremity unremarkable Neuro-alert oriented x3 no cranial nerve defects, gait not tested Objective Labs 04/08/23 12:57 04/08/23 12:57 Labs: Laboratory Results - last 24 hr 04/08/23 04/08/23 12:57 14:52 WBC 33.5 H* RBC 4.34 L Hgb 13.4 L Hct 39.9 L MCV 91.8 MCH 30.9 MCHC 33.7 RDW 13.2 Plt Count 223 Neut % (Auto) Not Reportable Lymph % (Auto) Not Reportable [place] % (Auto) Not Reportable Eos % (Auto) Not Reportable Baso % (Auto) Not Reportable Lymph # (Auto) Not Reportable [place] # (Auto) Not Reportable Baso # (Auto) Not Reportable Total Counted 100 Seg Neutrophils % 81.0 H Band Neutrophils % 10.0 H Lymphocytes % (Manual) 6.0 L Monocytes % (Manual) 3.0 Neutrophils # (Manual) 16293 H RBC Morphology Normal morphology PT 17.4 H INR 1.5 H APTT 32 Sodium 133 L Potassium 4.1 Chloride 104 Carbon Dioxide 21 L BUN 15 Creatinine 0.99 Estimated GFR > 60 BUN/Creatinine Ratio 15.2 Glucose 130 H Lactate 1.1 Calcium 10.0 Total Bilirubin 1.3 AST 19 ALT 19 Alkaline Phosphatase 67 Total Protein 7.8 Albumin 4.1 Globulin 3.7 Albumin/Globulin Ratio 1.1 Lipase 26 Procalcitonin 2.30 H Urine RBC 5-10/hpf H Urine WBC 0-1/hpf Ur Squamous Epith Cells 0-1 /hpf Amorphous Sediment 1+ Urine Bacteria Occasional (0-1) Ur Culture Indicated? Specimen cultured Assessment & Plan Assessment & Plan narrative: 1. Cellulitis-patient with obvious cellulitis with significant leukocytosis and was febrile by report to 103+. Received IV ceftriaxone and vancomycin in the emergency department. No clear etiology for his infection at this point. No trauma or skin breakdown. I am suspicious about the possibility of some glucose metabolism disorder given that his random blood sugar was 130 and he does have a peripheral neuropathy, I wonder if there is an undiagnosed diabetes which would put him at slightly higher risk of developing this sort of infection In any event he deserves continued monitoring in the hospital as well as continued parental antibiotics until we can be more confident that his clinical course is improving. I would look for him to have decreasing or resolution of fever and decreasing white blood cell count etcetera 2. Hypertension-continue patient's usual amlodipine 3. Peripheral neuropathy-continue patient's usual gabapentin 4. Depression/ADHD/anxiety/PTSD-continue patient's usual medications including his bupropion and his dextroamphetamine amphetamine 5. Code status-patient appropriate for full code in the event of a sudden cardiac or respiratory arrest which is not anticipated by any means at this time 6. VTE prophylaxis-Lovenox makes sense and has been ordered in addition to SCDs on the left leg anyway. If patient does indeed have resolution of his fever improving white blood cell count as well as clinical improvement in his right leg he can likely be discharged after perhaps another dose of parental antibiotics tomorrow on oral antibiotics and close outpatient follow-up
[2023-04-08] MEDS: ACETAMINOPHEN 325 MG TABLET 650 MG PO (18:23)
[2023-04-08] MEDS: GABAPENTIN 300 MG CAPSULE PO (20:21)
[2023-04-08] MEDS: OXYCODONE IR 5 MG TABLET PO ×2 (20:21→23:25)
[2023-04-09] MEDS: ACETAMINOPHEN 325 MG TABLET 650 MG PO ×4 (00:11→23:27)
[2023-04-09] MEDS: VANCOMYCIN 2,000 MG/400 ML PIGGYBACK 200 MG IV ×2 (02:09→16:19)
[2023-04-09 06:32] LABS: Add Manual Diff / Slide Review NO; Basophils Absolute Auto 0 /uL (0-100); Basophils Percent Auto 0.2 % (0-2); Eosinophils Absolute Auto 200 /uL (0-450); Hematocrit 35.3 % (41-53); Hemoglobin 11.8 g/dL (13.5-17.5); Lymphocytes Absolute Auto 1400 /uL (1100-4500); Lymphocytes Percent Auto 5.9 % (25-40); Mean Corpuscular HGB Conc 33.5 % (30-36); Mean Corpuscular Hemoglobin 31.1 PG (26-34); Mean Corpuscular Volume 92.8 fL (80-100); Monocytes Absolute Auto 1600 /uL (0-900); Monocytes Percent Auto 7.1 % (3-14); Neutrophils Absolute Auto 19800 /uL (1500-7000); Neutrophils Percent Auto 85.8 % (50-75); Platelet Count 198 X10^3/uL (150-400); Red Cell Distribution Width 13.5 % (11.6-14.8); White Blood Cell Count 23.1 X10^3/uL (4.5-11.0)
[2023-04-09 06:43] LABS: BUN Creatinine Ratio 18.9 (6-22); Blood Urea Nitrogen 14 mg/dL (9-20); Calcium 8.9 mg/dL (8.4-10.2); Carbon Dioxide 23 mmol/L (22-32); Chloride 105 mmol/L (98-107); Estimated Glomerular Filt Rate > 60 mL/min (>60); Glucose 99 mg/dL (70-100); HEMOLYSIS < 15 (0-50); Potassium 3.8 mmol/L (3.4-5.1); Sodium 134 mmol/L (137-145)
[2023-04-09 06:48] LABS: Hemoglobin A1C% w Est Avg Glu 5.9 % (4.0-6.0)
[2023-04-09 07:00] VITALS: BP 116/65; PULSE 94; RESP 18; TEMP 37.6; O2SAT 93
[2023-04-09] MEDS: buPROPion XL 150 MG TAB 300 MG PO (08:25)
[2023-04-09] MEDS: HYDROMORPHONE 4 MG TABLET PO ×3 (08:26→20:18)
[2023-04-09] MEDS: GABAPENTIN 300 MG CAPSULE PO ×3 (08:26→20:18)
[2023-04-09] MEDS: CYANOCOBALAMIN (VITAMIN B-12) 500 MCG TABLET 1000 MCG PO (08:26)
[2023-04-09] MEDS: AMLODIPINE 5 MG TABLET PO (08:26)
[2023-04-09] MEDS: DEXTROAMPHETAMINE AMPHETAMINE 15 MG 15 EACH PO (09:32)
--- NOTE | 2023-04-09 10:41 | PC.NURSE ---
Assess- Patient is alert and oriented x4, given his morning medications and some dilaudid from float RN earlier. Patient would like to sleep until noon without any interruptions. His R.leg is outlined in black ink, he does have redness extending outward all the way down to his foot. PP present and palpable x2. He is using the urinal at bedside and is comfortable at this time.
--- NOTE | 2023-04-09 12:02 | CM.DANOTE ---
Reviewed EMR and team rounds for pt's medical status and initial anticipated d/c needs. Pt sleeping at time of this assessment with the request to not be disturbed. Payor: [place] PCP: Dr. Rod/Wily Pt is a 58 year-old M who presented to the ED on 04/08/23 with 2-days of right lower extremity pain, redness, swelling-worsening into the calf and groin, as well as fever and chills. ED evaluation and dx was determined to be cellulitis, pt was started on IV ABO's and fluids in the ED, and was admitted to inpt for further tx. STONE RIGGER will meet with pt again tomorrow to continue assessment and establish plan for d/c. Discharge Planning/Care Management CM Discharge Assessment Start: 04/09/23 11:51 Freq: Status: Active Protocol: Document 04/09/23 11:52 DPL (Rec: 04/09/23 12:01 DPL [id number]) Discharge Planning Assessment Assigned Cad Programmer FRANCY Ventura Advance Directives? No History Provided By Medical Record Expected Length of Stay 3 Has Patient been admitted in last 30 No days? Prior Living Arrangements House Household Members none Type of transporation used prior to Drives own vehicle admit Independent with ADL's Yes Is patient alert and oriented? Yes Caregiver for Another No Comment Pt was sleeping at time of this assessment. Will monitor for final d/c needs and recommendations. Barriers to Discharge No Discharge Plan Home Transportation Arrangement Unknown at this time. Will confirm and update EMR once clarified. Referrals Initiated None needed Comment Pt sleeping with Do Not Disturb sign on door. Review Status In Process Please Provide Date Initial DC 04/09/23 Assessment Was Performed
--- NOTE | 2023-04-09 13:35 | PC.NURSE ---
Assumed care of pt at 1315, A&Ox4, sitting up in the chair eating lunch. C/o mild pain to RLE but says pain meds from this am worked well. RLE red and swollen, edges marked by MD earlier today. Call light within reach, patient resting comfortably at this time.
[2023-04-09] MEDS: cefTRIAXone 2,000 MG in SODIUM CHLORIDE 0.9% 100 ML 200 MG IV (15:08)
--- NOTE | 2023-04-09 17:22 | PM.PN.1 ---
Subjective Subjective Interval history: chief complaint: leg pain Feeling ok today but leg is still very painful to bear weight. Erythema is a bit duller than on admission but it has clearly spread beyond initial boundaries as marked by skin marker. Urinating in jug rather than ambulate to bathroom. eating well and having less fevers with controlled pain. Exam Vital Signs (past 8 hours): Oxygen Delivery Method Room Air Oxygen Flow Rate 0 Narrative Exam Narrative: layingin bed trying to get some sleep HENMT Other: normocephalic atraumatic Resp Other: moving air well clear to auscultation bilaterally Cardio Other: regular rate and rhythm, s1/s2 GI Other: soft nontender nondistended Extrem Other: R leg with spreading erythema over entire lateral calf and ankle, clearly extending beyond previously marked area with marked tenderness and swelling evident. distal NV grossly intact. Objective Labs 04/09/23 05:50 04/09/23 05:50 Labs: Laboratory Results - last 24 hr 04/09/23 05:50 WBC 23.1 H RBC 3.80 L Hgb 11.8 L Hct 35.3 L MCV 92.8 MCH 31.1 MCHC 33.5 RDW 13.5 Plt Count 198 Neut % (Auto) 85.8 H Lymph % (Auto) 5.9 L [place] % (Auto) 7.1 Eos % (Auto) 1.0 L Baso % (Auto) 0.2 Neut # (Auto) 10403 H Lymph # (Auto) 1400 [place] # (Auto) 1600 H Eos # (Auto) 200 Baso # (Auto) 0 Sodium 134 L Potassium 3.8 Chloride 105 Carbon Dioxide 23 BUN 14 Creatinine 0.74 Estimated GFR > 60 BUN/Creatinine Ratio 18.9 Glucose 99 Hemoglobin A1c 5.9 Calcium 8.9 [facility] Medical History (Updated 04/08/23 @ 17:43 by Darrius Julien MD) Peripheral neuropathy B12 deficiency Hypertension ADHD (attention deficit hyperactivity disorder), inattentive type History of posttraumatic stress disorder (PTSD) Depression Social History marital status: number of children: 3 household members: none lives independently: Yes housing: house education level: college 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 Continue vanco and rocephin. Will check a1c on discharge for possible undiagnosed sugar issue. Hopefully ready for discharge tomorrow if erythema starts to recede and can go out on orals. Trending WBCs which are still quite high today but improving. #Hypertension stable continue home meds #Peripheral neuropathy stable continue home gabapentin #Depression/ADHD/anxiety/PTSD stable continue home meds mood is good he is enjoying the lack of stimulation here dispo: obsv for now, leg still requires parentereal antibiotics given significant infection, probably home tomorrow on oral abx code: full dvt: SCDs and lovenox
[2023-04-09 20:20] VITALS: BP 123/72; PULSE 97; RESP 16; TEMP 36.8; O2SAT 98
[2023-04-10] MEDS: HYDROMORPHONE 4 MG TABLET PO ×4 (00:41→16:39)
[2023-04-10 02:05] LABS: Vancomycin Trough 8.1 ug/mL (10-20)
[2023-04-10] MEDS: VANCOMYCIN 2,000 MG/400 ML PIGGYBACK 200 MG IV (02:22)
[2023-04-10 06:14] LABS: Add Manual Diff / Slide Review NO; Basophils Absolute Auto 100 /uL (0-100); Basophils Percent Auto 0.4 % (0-2); Eosinophils Absolute Auto 300 /uL (0-450); Eosinophils Percent Auto 1.8 % (2-4); Hematocrit 33.5 % (41-53); Hemoglobin 11.3 g/dL (13.5-17.5); Lymphocytes Absolute Auto 1600 /uL (1100-4500); Lymphocytes Percent Auto 11.9 % (25-40); Mean Corpuscular HGB Conc 33.6 % (30-36); Mean Corpuscular Hemoglobin 31.7 PG (26-34); Mean Corpuscular Volume 94.3 fL (80-100); Monocytes Absolute Auto 1100 /uL (0-900); Neutrophils Absolute Auto 10800 /uL (1500-7000); Neutrophils Percent Auto 77.9 % (50-75); Platelet Count 221 X10^3/uL (150-400); Red Blood Cell Count 3.56 X10^6/uL (4.5-5.9); Red Cell Distribution Width 13.3 % (11.6-14.8); White Blood Cell Count 13.8 X10^3/uL (4.5-11.0)
[2023-04-10 06:24] LABS: Alanine Aminotransferase 16 IU/L (<50); Albumin 3.3 g/dL (3.5-5.0); Alkaline Phosphatase 56 U/L (38-126); Aspartate Aminotransferase 17 IU/L (17-59); BUN Creatinine Ratio 17.9 (6-22); Bilirubin Total 0.4 mg/dL (0.2-1.3); Blood Urea Nitrogen 15 mg/dL (9-20); Calcium 8.8 mg/dL (8.4-10.2); Carbon Dioxide 26 mmol/L (22-32); Chloride 102 mmol/L (98-107); Estimated Glomerular Filt Rate > 60 mL/min (>60); Globulin 3.4 g/dL (1.7-4.1); Glucose 130 mg/dL (70-100); HEMOLYSIS < 15 (0-50); Potassium 3.6 mmol/L (3.4-5.1); Sodium 135 mmol/L (137-145); Total Protein 6.7 g/dL (6.3-8.2)
[2023-04-10 07:00] VITALS: BP 121/67; PULSE 78; RESP 16; TEMP 36.2; O2SAT 95
[2023-04-10] MEDS: CYANOCOBALAMIN (VITAMIN B-12) 500 MCG TABLET 1000 MCG PO (08:41)
[2023-04-10] MEDS: VANCOMYCIN 1,250 MG/250 ML PIGGYBACK 250 MG IV ×3 (08:41→20:38)
[2023-04-10] MEDS: AMLODIPINE 5 MG TABLET PO (08:41)
[2023-04-10] MEDS: DEXTROAMPHETAMINE AMPHETAMINE 15 MG 15 EACH PO (08:41)
[2023-04-10] MEDS: buPROPion XL 150 MG TAB 300 MG PO (08:41)
[2023-04-10] MEDS: GABAPENTIN 300 MG CAPSULE PO ×3 (08:43→20:38)
[2023-04-10] MEDS: ACETAMINOPHEN 325 MG TABLET 650 MG PO ×2 (11:56→20:38)
--- NOTE | 2023-04-10 13:31 | PC.NURSE ---
Addendum entered by Carola Mata R.N. 04/10/23 14:58: Patient has a compression stalking on his r.leg, and he is elevating his leg on a pillow. Resting comfortably. Original Note: Patients chow is looking less red and swollen after getting his iv antibiotics. Dilaudid is helpful for patients discomfort and he is talking to at this time.
--- NOTE | 2023-04-10 13:48 | P.PN_ITS ---
Subjective Subjective Date Patient Seen: 04/10/23 Time Patient Seen: 13:48 Interval history: Patient states that overall he is doing better and pain is less than he was admitted but still severe pain especially when he 1st gets up in the morning and really he is not able to mobilize very well. He did decline his Lovenox shot today despite being instructed that it is for clot prevention. Patient of Dr. Chan. Reviewed chart and workup. Patient with previous history of prediabetes. Blood sugar today 130 and 130 on admit. No family history of diabetes Exam Vital Signs (past 8 hours): - 04/10/23 07:00 04/10/23 07:00 Temperature 97.2 F L Pulse Rate 78 Respiratory Rate 16 Blood Pressure 121/67 Pulse Oximetry 95 Oxygen Delivery Method Room Air Oxygen Flow Rate 0 Oxygen Delivery Method Room Air Oxygen Flow Rate 0 Narrative Exam Narrative: Afebrile vital signs are stable. Patient is alert and oriented x3 HEENT unremarkable Neck: Supple without adenopathy Chest: Clear to auscultation Cor: Regular rate and rhythm without a murmur Lower extremities shows atrophy of left lower leg related to previous surgery Right lower extremity shows swelling basically from mid thigh down. Pulses are 2+ posterior tibialis and 1+ dorsalis pedis. Patient has swelling of the malleoli as well. Reviewed area of erythema which has increased from initial markings on admit 2 days ago but per patient not worse than it was yesterday. Encompassing lower distal medial leg Homans sign negative Objective Labs 04/10/23 06:00 04/10/23 06:00 Labs: Laboratory Results - last 24 hr 04/10/23 04/10/23 01:32 06:00 WBC 13.8 H RBC 3.56 L Hgb 11.3 L Hct 33.5 L MCV 94.3 MCH 31.7 MCHC 33.6 RDW 13.3 Plt Count 221 Neut % (Auto) 77.9 H Lymph % (Auto) 11.9 L [place] % (Auto) 8.0 Eos % (Auto) 1.8 L Baso % (Auto) 0.4 Neut # (Auto) 92278 H Lymph # (Auto) 1600 [place] # (Auto) 1100 H Eos # (Auto) 300 Baso # (Auto) 100 Sodium 135 L Potassium 3.6 Chloride 102 Carbon Dioxide 26 BUN 15 Creatinine 0.84 Estimated GFR > 60 BUN/Creatinine Ratio 17.9 Glucose 130 H Calcium 8.8 Total Bilirubin 0.4 AST 17 ALT 16 Alkaline Phosphatase 56 Total Protein 6.7 Albumin 3.3 L Globulin 3.4 Albumin/Globulin Ratio 1.0 Vancomycin Trough 8.1 L PFSH Medical History (Updated 04/08/23 @ 17:43 by Darrius Julien MD) Peripheral neuropathy B12 deficiency Hypertension ADHD (attention deficit hyperactivity disorder), inattentive type History of posttraumatic stress disorder (PTSD) Depression Social History marital status: number of children: 3 household members: none lives independently: Yes housing: house education level: college 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 Will check hemoglobin A1c tomorrow due to elevated blood sugar this morning. No previous history. Seems to be slowly improving clinically. Will continue with IV antibiotics. Requires another 24 hours of hospitalization for IV antibiotics and patient with difficulty with ambulation due to pain and swelling. Will see if we have compression stockings that will fit him. Discussed the importance of elevating. Will repeat labs in the morning. White blood cell count has decreased further. #Hypertension stable continue home meds, amlodipine #Peripheral neuropathy per patient related to B12 deficiency and poor absorption stable continue home gabapentin #Depression/ADHD/anxiety/PTSD stable continue home meds mood is good he is enjoying the lack of stimulation here dispo: obsv for now, leg still requires parentereal antibiotics given significant infection, probably home tomorrow on oral abx code: full dvt: SCDs and lovenox. Reviewed with patient importance of continuing with the Lovenox for prevention. 35 minutes spent with patient reviewing chart, discussing with nursing, meeting with patient formulating plan and documentation
[2023-04-10] MEDS: cefTRIAXone 2,000 MG in SODIUM CHLORIDE 0.9% 100 ML 200 MG IV (15:54)
[2023-04-10 19:00] VITALS: BP 127/71; PULSE 96; RESP 18; TEMP 36.6; O2SAT 96
[2023-04-10] MEDS: SODIUM CHLORIDE 0.9% FLUSH 10 ML IV (20:40)
--- NOTE | 2023-04-10 22:28 | PC.NURSE ---
Addendum entered by Milly Cuenca R.N. 04/10/23 22:40: correction: redness is extending past previously drawn markings. Original Note: Patient is alert and oriented. Breath sounds CTA with RA sat of 96%. HRR. Denied nausea. BT present and abdomen is soft; passing flatus but has not had a BM since 04/07 but declines medication/prune juice for constipation. Voiding per urinal and denied dysuria. Is independent with mobility. Right LE is bright red, warm to touch and has edema; redness is within previously drawn markings. Wearing a AMAYA stocking which he states was put on earlier today. Has right leg elevated either on pillows or in sling fashioned from [employer] lift. Complains of 8/10 pain when leg not elevated and 3/10 when elevated; describes pain as on fire; medicated with tylenol by RAFAEL Larose, earlier this shift. Declines SCD's but verbalized understanding of risks. Has neuropathy in toes of feet bilaterally which he stated is unchanged from prior to adittion. Fall risk score is moderate; verbalized understanding to call for assist when out of bed if dizzy, lightheaded or unsteady; alarm not in use at this time.
[2023-04-11] MEDS: SODIUM CHLORIDE 0.9% FLUSH 10 ML IV ×2 (02:46→08:53)
[2023-04-11] MEDS: VANCOMYCIN 1,250 MG/250 ML PIGGYBACK 250 MG IV ×3 (02:46→14:19)
[2023-04-11] MEDS: ACETAMINOPHEN 325 MG TABLET 650 MG PO ×2 (06:19→13:06)
[2023-04-11] MEDS: HYDROMORPHONE 4 MG TABLET PO (06:20)
[2023-04-11 06:53] LABS: Add Manual Diff / Slide Review NO; Basophils Absolute Auto 0 /uL (0-100); Basophils Percent Auto 0.4 % (0-2); Eosinophils Absolute Auto 200 /uL (0-450); Hematocrit 32.6 % (41-53); Lymphocytes Absolute Auto 1200 /uL (1100-4500); Lymphocytes Percent Auto 11.2 % (25-40); Mean Corpuscular HGB Conc 33.9 % (30-36); Mean Corpuscular Hemoglobin 31.4 PG (26-34); Mean Corpuscular Volume 92.8 fL (80-100); Monocytes Absolute Auto 1400 /uL (0-900); Monocytes Percent Auto 13.2 % (3-14); Neutrophils Absolute Auto 7600 /uL (1500-7000); Neutrophils Percent Auto 73.2 % (50-75); Platelet Count 229 X10^3/uL (150-400); Red Blood Cell Count 3.51 X10^6/uL (4.5-5.9); Red Cell Distribution Width 13.4 % (11.6-14.8); White Blood Cell Count 10.4 X10^3/uL (4.5-11.0)
[2023-04-11 07:00] VITALS: BP 102/56; PULSE 69; RESP 18; TEMP 36.5; O2SAT 94
[2023-04-11 07:17] LABS: Alanine Aminotransferase 19 IU/L (<50); Albumin 3.3 g/dL (3.5-5.0); Alkaline Phosphatase 63 U/L (38-126); Aspartate Aminotransferase 19 IU/L (17-59); BUN Creatinine Ratio 15.4 (6-22); Bilirubin Total 0.5 mg/dL (0.2-1.3); Blood Urea Nitrogen 12 mg/dL (9-20); Calcium 8.7 mg/dL (8.4-10.2); Carbon Dioxide 29 mmol/L (22-32); Chloride 105 mmol/L (98-107); Estimated Glomerular Filt Rate > 60 mL/min (>60); Globulin 3.3 g/dL (1.7-4.1); Glucose 109 mg/dL (70-100); HEMOLYSIS < 15 (0-50); Potassium 3.7 mmol/L (3.4-5.1); Sodium 139 mmol/L (137-145); Total Protein 6.6 g/dL (6.3-8.2)
[2023-04-11 08:38] LABS: Vancomycin Trough 12.6 ug/mL (10-20)
[2023-04-11] MEDS: AMLODIPINE 5 MG TABLET PO (08:51)
[2023-04-11] MEDS: GABAPENTIN 300 MG CAPSULE PO ×2 (08:51→14:19)
[2023-04-11] MEDS: buPROPion XL 150 MG TAB 300 MG PO (08:52)
[2023-04-11] MEDS: CYANOCOBALAMIN (VITAMIN B-12) 500 MCG TABLET 1000 MCG PO (08:52)
[2023-04-11] MEDS: DEXTROAMPHETAMINE AMPHETAMINE 15 MG 15 EACH PO (09:43)
[2023-04-11] MEDS: cefTRIAXone 2,000 MG in SODIUM CHLORIDE 0.9% 100 ML 200 MG IV (13:06)
[2023-04-11] MEDS: OXYCODONE IR 10 MG TABLET PO (13:06)
--- NOTE | 2023-04-11 13:24 | CM.DPC ---
DCP Cont. Reviewed EMR and team rounds for status updates. Pt to be d/c'd home today with oral ABO's. He plans to call a friend to transport him home. No further DCP needs identified at this time.
--- NOTE | 2023-04-11 17:32 | P.DS_ITS ---
History of Present Illness History of Present Illness Date Patient Seen: 04/11/23 Time Patient Seen: 09:30 Chief complaint: R/groin pain, fever, calf pain Narrative: chief complaint: R leg pain Doing better today he has been elevating that helps a lot - WBCs are normalizing his swelling is down the erythema has not spread for two days and is just fading now. Pain is doing better also he is able to ambulate short distances but it can still be quite painful. Will plan on one more dose of abx this afternoon then home to f/up with PCP. Discharge Providers Provider Date of admission: 04/08/23 16:09 Discharge Date: 04/11/23 Primary care physician: Gómez Rod MD Consults: 04/08/23 17:48 Consult to [facility] [place] [facility] Routine Comment: Discharge provider: Gómez Rod MD Summary Status at Discharge Cognitive/behavioral status at discharge: at baseline, oriented Functional status at discharge: uses cane/walker Overall status at discharge: patient is progressing back to baseline Exam Vital Signs (past 8 hours): Oxygen Delivery Method Room Air Oxygen Flow Rate 0 Narrative Exam Narrative: laying with R leg in elevation Const General: cooperative and comfortable Nutritional Appearance: average body habitus and well nourished Resp Other: clear to auscultation bilaterally Cardio Other: regular rate and rhythm, S1/S2 GI Other: soft nontender nondistended Neuro Other: AAOx3, moving all extremities Extrem Other: R leg with extensive fadingerythema and woudn on lateral chow approx 3cm wrounded raw eschar - good distal pulses, overall looks better than previous days Objective Labs 04/11/23 06:15 04/11/23 06:15 Labs: Laboratory Results - last 24 hr 04/11/23 04/11/23 06:15 07:54 WBC 10.4 RBC 3.51 L Hgb 11.0 L Hct 32.6 L MCV 92.8 MCH 31.4 MCHC 33.9 RDW 13.4 Plt Count 229 Neut % (Auto) 73.2 Lymph % (Auto) 11.2 L [place] % (Auto) 13.2 Eos % (Auto) 2.0 Baso % (Auto) 0.4 Neut # (Auto) 7600 H Lymph # (Auto) 1200 [place] # (Auto) 1400 H Eos # (Auto) 200 Baso # (Auto) 0 Sodium 139 Potassium 3.7 Chloride 105 Carbon Dioxide 29 BUN 12 Creatinine 0.78 Estimated GFR > 60 BUN/Creatinine Ratio 15.4 Glucose 109 H Calcium 8.7 Total Bilirubin 0.5 AST 19 ALT 19 Alkaline Phosphatase 63 Total Protein 6.6 Albumin 3.3 L Globulin 3.3 Albumin/Globulin Ratio 1.0 Vancomycin Trough 12.6 PFS Medical History (Updated 04/08/23 @ 17:43 by Darrius Julien MD) Peripheral neuropathy B12 deficiency Hypertension ADHD (attention deficit hyperactivity disorder), inattentive type History of posttraumatic stress disorder (PTSD) Depression Social History marital status: number of children: 3 household members: none lives independently: Yes housing: house education level: college 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 HGB A1c actually low, I do not think this is contributory. No previous history. Improving well clinically on IV abx and fluids with compression stocking and elevation Seems to be slowly improving clinically. Will continue with IV antibiotics. Labs show normalization. Will get crutches to go out on as well as keflex and percoset for pain control. #Hypertension stable continue home meds, amlodipine #Peripheral neuropathy per patient related to B12 deficiency and poor absorption stable continue home gabapentin #Depression/ADHD/anxiety/PTSD stable continue home meds mood is good dispo: home to f/up with PCP code: full dvt: SCDs and lovenox. time spent: 40 min Discharge Plan Discharge Plan Patient Disposition: Home Discharge orders & Medications Prescriptions: Continued gabapentin 300 mg capsule 300 mg PO TID Patient Comments: take 1 capsule by mouth three times a day bupropion HCl 300 mg tablet extended release 24 hr 300 mg PO DAILY Qty: 90 3RF dextroamphetamine-amphetamine 10 mg tablet 10 mg PO DAILY Qty: 30 0RF Rx Instructions: Take as afternoon booster dose. dextroamphetamine-amphetamine 15 mg capsule,extended release 24hr 15 mg PO DAILY Qty: 30 0RF amlodipine 10 mg Tablet 5 mg PO DAILY cyanocobalamin (vitamin B-12) [Vitamin B-12] 1,000 mcg Tablet 1,000 mcg PO DAILY Follow up/Referrals: Gómez Rod MD [Primary Care Provider] - Visit Report/Discharge Packet Instructions: How to Use Crutches, How to Prevent Falls, DI for Prescription Opioid Use Stand Alone Forms: Patient Portal/API, Stroke Signs & Symptoms Discharge Data Primary Care Provider: Gómez Rod
--- NOTE | 2023-04-11 18:56 | PC.NURSE ---
Pt discharged home at 1808, escorted off floor in wheelchair accompanied by hospital staff. IV removed, discharge teaching completed including follow up appointments, new medications and worsening symptoms. Medications retrieved from pharmacy, crutches provided and paperwork completed. Patient left the floor with all belongings.
== END 2023-04-11 18:30 | disposition home or self-care (01) | DRG 383 ==
LOC: ED 15:39 → AC 17:04
PROVIDERS: Admitting Provider Internal Medicine; Emergency Provider Emergency Medicine; Family Provider Family Medicine; PCP Family Medicine; Referring Provider Emergency Medicine; Visit Provider Family Medicine
DX: L03.115 Cellulitis of right lower limb (principal); I10 Essential (primary) hypertension; G62.9 Polyneuropathy, unspecified; F32.A Depression, unspecified; F90.9 Attention-deficit hyperactivity disorder, unspecified type; F41.9 Anxiety disorder, unspecified; F43.10 Post-traumatic stress disorder, unspecified; F17.210 Nicotine dependence, cigarettes, uncomplicated; D72.828 Other elevated white blood cell count
CPT/HCPCS: 36415; 51798; 71045; 80048; 80053; 80202; 81003; 81015; 83036; 83605; 83690; 84145; 85007; 85025; 85610; 85730; 87040; 87086; 93971; 96365; 99222; 99284; G0378; J0696; J1650

== ENCOUNTER → 2023-06-05 12:16 | Outpatient (CLI) | payer OTHER, SELFPAY ==
[2023-04-08 17:11] VITALS: BMI 30.8
--- NOTE | 2023-06-05 | DI.MRI.S_ITS ---
PROCEDURE: MR CERVICAL SPINE WO CON INDICATIONS: FORAMINAL STENOSIS OF CERVICAL REGION TECHNIQUE: Noncontrast sagittal T1 spin echo and T2 fast spin echo, sagittal STIR, foraminal oblique sagittal T2 fast spin echo, and axial gradient echo or T2 fast spin echo through the cervical spine. COMPARISON: [facility], MR, MR CERVICAL SPINE WO CON, 03/15/2022, 14:07. FINDINGS: Image quality: Excellent. Alignment and Curvature: There is straightening of the normal cervical lordosis. No focal AP alignment abnormality is seen. Bone Marrow: Marrow demonstrates normal overall signal. Spinal Cord: Visualized spinal cord has normal size and signal. No cerebellar tonsillar herniation. Paraspinous Soft Tissues: No paravertebral masses. Prevertebral soft tissues are normal in thickness. C2-C3: The disc height and disk signal are well-preserved. A mild degree of generalized disc osteophyte complex is seen. There is moderate left-sided and mild right-sided facet hypertrophy. Moderate bilateral neural foraminal narrowing is seen. No significant central canal narrowing is seen. When comparison is made with the prior images, these findings are similar. C3-C4: Mild loss of disc height is seen. Loss of disc signal is seen. Mild to moderate disc osteophyte complex is seen, which is eccentric to the right. There is moderate facet hypertrophy seen, right worse than left. There is moderate to severe right-sided and moderate left-sided neural foraminal narrowing. Mild central canal narrowing is seen. When comparison is made with the prior images, these findings are similar. C4-C5: The disc height is well-preserved. Loss of disc signal is seen at this level. Moderate disc osteophyte complex is seen, which is eccentric to the right. There is prominent right-sided and moderate left-sided facet hypertrophy. There is moderate to severe right-sided and [id number] left-sided neural foraminal narrowing. Mild central canal narrowing is seen. When comparison is made with the prior images, these findings are similar. C5-C6: Moderate loss of disc height is seen. Loss of disc signal is seen. Moderate disc osteophyte complex is seen, which is eccentric to the left. There is a central/left disc osteophyte protrusion. Moderate facet hypertrophy is seen, right worse than left. There is moderate to severe bilateral neural foraminal narrowing, left worse than right. Moderate central canal narrowing is seen. There is associated mass effect upon the ventral spinal cord. When comparison is made with the prior images, these findings are similar. C6-C7: Moderate loss of disc height is seen. Loss of disc signal is seen. Moderate disc osteophyte complex is seen, which is eccentric to the left. Mild to moderate facet hypertrophy is seen. There is moderate to severe left-sided and at least moderate right-sided neural foraminal narrowing. Moderate central canal narrowing is seen. No significant progression is seen compared to the prior. C7-T1: Moderate loss of disc height is seen. Loss of disc signal is seen. Mild to moderate disc osteophyte complex is seen. Moderate facet joint hypertrophy is seen. There is moderate to severe right-sided and at least moderate left-sided neural foraminal narrowing. Mild central canal narrowing is seen. IMPRESSION: Multiple levels of significant cervical spine degenerative change can be seen, which are worst inferiorly and are similar to the 2021 images. Dictated by: Juan Ann M.D. on 06/05/2023 at 16:34 Approved by: Juan Ann M.D. on 06/05/2023 at 16:39
== END ==
LOC: MRI 12:17
PROVIDERS: Family Provider Family Medicine; PCP Family Medicine; Referring Provider Family Medicine; Visit Provider Family Medicine
DX: M48.02 Spinal stenosis, cervical region (principal); M47.812 Spondylosis without myelopathy or radiculopathy, cervical region
CPT/HCPCS: 72141

== ENCOUNTER → 2023-06-07 11:20 | Outpatient (CLI) | payer OTHER, SELFPAY ==
[2023-04-08 17:11] VITALS: BMI 30.8
== END ==
LOC: PHYS 11:21
PROVIDERS: Family Provider Family Medicine; PCP Family Medicine; Referring Provider Family Medicine; Visit Provider Family Medicine
DX: M48.02 Spinal stenosis, cervical region (principal); M47.812 Spondylosis without myelopathy or radiculopathy, cervical region
CPT/HCPCS: 95886; 95909

== ENCOUNTER → 2025-03-18 11:43 | Outpatient (CLI) | payer OTHER, SELFPAY ==
[2023-04-08 17:11] VITALS: BMI 30.8
--- NOTE | 2025-03-18 11:44 | DI.US.S_ITS ---
PROCEDURE: US ABDOMEN LIMITED INDICATIONS: Generalized abdominal pain TECHNIQUE: Real-time focused scanning was performed of the abdomen, with image documentation. COMPARISON: None. FINDINGS: At the site of the patient's right lower anterior abdominal wall pain, there is a hypoechoic collection of fluid measuring 1.8 x 0.2 x 0.9 cm in or adjacent to the rectus muscle. No obvious hernia, mass or adenopathy. IMPRESSION: Small volume fluid in or adjacent to the right anterior rectus muscle at the site of clinical concern. This could represent the sequela of previous muscle strain/trauma. Correlate with symptoms. If symptoms persist, recommend contrast-enhanced CT evaluation. Dictated by: Bruna Yu M.D. on 03/19/2025 at 8:57 Approved by: Bruna Yu M.D. on 03/19/2025 at 8:59
== END ==
PROVIDERS: PCP Family Medicine; Referring Provider Family Medicine; Visit Provider Family Medicine
DX: R10.84 Generalized abdominal pain (principal); R31.29 Other microscopic hematuria
CPT/HCPCS: 76705